=== PATIENT | male | born 1995 | race Caucasian/White ===

== ENCOUNTER 2018-09-13 11:37 | Emergency (ER) | payer BC ==
[2018-09-13] MEDS ORDERED: KETOROLAC 30 MG/1 ML SDV IVP ONE (13:17)
--- NOTE | 2018-09-13 13:21 | EDPHY ---
H & P Time Seen by Provider: 09/13/18 13:09 HPI/ROS: CHIEF COMPLAINT: Chest pain HISTORY OF PRESENT ILLNESS: Patient is a 23-year-old male who presents emergency department right-sided chest pain since Tuesday. Patient states he woke with pain under his right "stone." His pain has been consistent. It is not worse with movement. It is not positional. The patient states it is worse with exercise. Patient denies shortness of breath. He has had no fevers or chills. No cough. Pain or swelling. No recent travel. The patient went to work [employer]. There are laboratory studies and EKG. Provider there felt that he had T-wave abnormality and ST changes. The provider spoke with Dr. Campbell from Cardiology who recommended the patient come to the emergency department. Patient was not sent with his EKG although he did bring his lab work. REVIEW OF SYSTEMS: 10 systems were reveiwed and are negative with the exception of the elements mentioned in the history of present illness. Past Medical/Surgical History: Negative Past surgical history: Negative Family history: Negative for cardiac disease Smoking Status: Never smoked Physical Exam: 36.7, 111/53, 61, 16, 94% on room air GENERAL: Well-appearing, in no acute distress, alert. HEENT: Eyes normal to inspection, normal pharynx, no signs of dehydration. NECK: Normal, supple. RESPIRATORY: Clear to auscultation bilaterally, no rales, rhonchi or wheezing. CVS: Regular rate and rhythm, no rubs, murmurs, or gallops. Chest wall: Right anterior chest wall tenderness to palpation. This replicates his pain. No deformity. No redness. No rash. ABDOMEN: Soft, nontender, nondistended, no organomegaly. BACK: Normal to inspection, no CVA tenderness. SKIN: Normal color, no rash, warm, dry. No pallor. EXTREMITIES: No pedal edema, no calf tenderness, no Homans sign or cords, no joint swelling]. NEURO/PSYCH: Alert and oriented, normal mood and affect, normal motor sensory exam. Constitutional: Initial Vital Signs Temperature (C) 36.7 C 09/13/18 11:57 Heart Rate 61 09/13/18 11:57 Respiratory Rate 16 09/13/18 11:57 Blood Pressure 111/53 L 09/13/18 11:57 O2 Sat (%) 94 02/13/19 11:57 O2 Delivery Mode Room Air Allergies/Adverse Reactions: No Known Allergies Allergy (Unverified 09/13/18 11:56) Medical Decision Making - Diagnostics Imaging Results: Imaging Impressions Chest X-Ray 09/13/18 13:15 Impression: Normal chest x-ray. Cardiac CT 09/13/18 14:53 Impression: Normal coronary arterial system. Incidental myocardial bridge proximal LAD. All measurements of stenoses are based on NASCET criteria. Findings discussed with Makayla South M.D. at 17:50 hour, 09/13/2018. ED Course/Re-evaluation: In the emergency department discussed possible etiologies with the patient. I answered all his questions. [employer] was contacted to obtain the EKG. I reviewed the laboratory studies from [facility] earlier today. Patient's white count was 7.8. Hematocrit 47. Platelets 246. Sodium was mildly elevated 148. Potassium normal at 4.4. Creatinine was normal. D-dimer was less than 100 which is negative. Laboratory studies, repeat EKG, and chest x-ray were ordered. Patient was given Toradol 30 mg IV. EKG shows normal sinus rhythm, normal rate, normal axis, normal intervals. ST elevation in V2 through V5. Obtain EKG from [facility]. It is similar to the EKG obtained here. I discussed the case with Cardiology. They came to the emergency department to evaluate the patient. Patient's troponin was negative. Cardiology recommended echo and CT cardiac angiogram. CT cardiac angiogram: Please refer the dictated report by Dr. Mykel Valdez. The patient has myocardial bridge with no other abnormality. Cardiac echo: No acute disease noted I discussed the results with Dr. Meza. He recommended the patient not have straining is or athletic activity and follow-up with Cardiology. Patient was given warnings prior to leaving. He will return with worsening symptoms. Differential Diagnosis: My differential includes but is not limited to ACS, acute ND, pulmonary embolus , musculoskeletal strain, costochondritis, pericarditis, myocarditis, dissection , aneurysm - Data Points Laboratory Results: 09/13/18 13:34 POC Troponin I 0.00 ng/mL ng/mL (0.00-0.08) Medications Given: Metoprolol Tartrate (Lopressor) 25 mg PO EDNOW ONE Stop: 09/13/18 15:55 Last Admin: 09/13/18 15:57 Dose: Not Given Discontinued Medications Ketorolac Tromethamine (Toradol) 30 mg IVP EDNOW ONE Stop: 09/13/18 13:18 Last Admin: 09/13/18 13:38 Dose: 30 mg Point of Care Test Results: Chemistry 09/13/18 13:34 POC Troponin I 0.00 ng/mL ng/mL (0.00-0.08) Departure - Departure Disposition: Home, Routine, Self-Care Clinical Impression: Chest pain Qualifiers: Chest pain type: unspecified Qualified Code(s): R07.9 - Chest pain, unspecified Condition: Fair Instructions: Chest Pain (ED) Additional Instructions: You have a myocardial bridge noted on your CT cardiac angiogram. He will need further follow-up with cardiology. Until you follow up with Cardiology you should undergo no strenuous activity. Return to the emergency department with worsening chest pain or shortness of breath. Referrals: [facility] [Provider Group] - 2-3 days without fail
--- NOTE | 2018-09-13 15:44 | ECHO ---
[email or web address] [address] [address] Main: [phone] Fax: Transthoracic Echocardiogram Name: SERG SOLORIO MR#: [id number] Study Date: 09/13/2018 Study Time: 03:02 PM Date of : 1995 Age: 23 year(s) Height: ( ) Weight: ( ) BSA: Gender: Male Examination: Echo Indication: chest pain/abnl ekg Image Quality: Adequate Contrast: Requested by: Caroline Klein BP: / Heart Rate: Rhythm: Indication: chest pain/abnl ekg Procedure Staff Powderman: Ainsley Lazo [facility] Reading Physician: Nacho Kim MD Requesting Provider: Conclusions: Normal global systolic LV function. EF is 77 %. The mitral valve is normal in appearance and function. Trivial to mild tricuspid valve regurgitation. Right ventricular systolic pressure measures 20mmHg. Measurements: Chambers Valvular Assessment AV/MV Valvular Assessment TV/PV Normal Normal Normal Name Value Range Name Value Range Name Value Range Ao Audelia (MM): 2.8 cm (2.2 cm-3.7 AV Vmax: 1.36 m/s (1 m/s-1.7 TR Vmax: 1.95 mm/s ( - ) cm) m/s) TR PGmax: 15 mmHg ( - ) IVSd (2D): 0.9 cm (0.6 cm-1.1 AV maxP mmHg ( - ) syst. PAP: 20 mmHg ( - ) cm) LVOT Vmax: 1.19 m/s (0.7 m/s-1.1 PV Vmax: 1.21 m/s (0.6 m/s-0.9 LVDd (2D): 4.6 cm (4.2 cm-5.9 m/s) m/s) cm) TRICIA (Vmax): 2.7 cm2 ( - ) PV PGmax: 6 mmHg ( - ) LVDs (2D): 2.7 cm (2.1 cm-4 MV E Vmax: 0.76 m/s ( - ) cm) MV A Vmax: 0.51 m/s ( - ) LVPWd (2D): 1.0 cm (0.6 cm-1 MV E/A: 1.49 ( - ) cm) LVOTd 2.0 cm 2.0 cm mm LVEF (BP): 77 % (>=55 %) RVDd(2D): 3.7 cm (1.9 cm-3.8 cmmm) Continued Measurements: Chambers Valvular Assessment AV/MV Valvular Assessment TV/PV Name Value Name Value Name Value LADs: 2.9 cm MV DecTime: 155 m/s CVP (est.): 5 mmHg Patient: SERG SOLORIO Study Date: 09/13/2018 Page 1 of 2 03:02 PM LADs Lon.4 cm MV E' Septal: 0.13 m/s LA Area: 13.7 cm2 MV E/E' Septal: 5.90 LA Volume: 37 ml MV E/E' Lateral: 4.10 TAPSE: 2.3 cm RA Area: 12.9 cm2 Findings: Left Ventricle: Normal size left ventricle. No LV hypertrophy. Normal global systolic LV function. EF is 77 %. No regional wall motion abnormality. Normal diastolic LV function. Right Ventricle: Normal size right ventricle. Normal RV function. Left Atrium: The left atrium is normal in size. Right Atrium: The right atrium is normal in size. Mitral Valve: The mitral valve is normal in appearance and function. There is no significant mitral valve regurgitation. No mitral stenosis is present. Aortic Valve: The aortic valve is tri-leaflet. There is no aortic valve regurgitation. No aortic valve stenosis is present. Tricuspid Valve: The tricuspid valve is normal in appearance and function. Trivial to mild tricuspid valve regurgitation. Right ventricular systolic pressure measures 20mmHg. The pulmonary artery pressure is normal. Pulmonic Valve: The pulmonic valve is normal in appearance and function. Trivial pulmonic valve regurgitation. Aorta: The aorta is normal. Normal size aortic root measuring 2.8 cm. IVC: Normal size and course of the IVC. Pericardium: No pericardial effusion. (No Signature Object) Patient: SERG SOLORIO Study Date: 09/13/2018 Page 2 of 2 03:02 PM [id number]
[2018-09-13] MEDS ORDERED: METOPROLOL TARTRATE 25 MG TAB PO ONE (15:54)
[2018-09-13] MEDS ORDERED: IOHEXOL 350mgI/ML (OMNIPAQUE) 150 ML BTL IV ONE (15:58)
--- NOTE | 2018-09-13 16:31 | GCON ---
[f rep st] CONSULTATION CARDIAC CONSULTATION DATE OF CONSULTATION: 09/13/2018 CHIEF COMPLAINT: Chest pain. HISTORY OF PRESENT ILLNESS: The patient is a 23-year-old student who presented to [facility] today with chest pain. On Tuesday morning, he woke up with right-sided chest pressure that has bee n persistent since that time. It does get worse with deep breaths and exertion. He denies any palpi tation, shortness of breath, presyncope, or syncope. His EKG at [facility] was concerning; therefore , he was referred to the hospital. His troponin is negative and D-dimer at [facility] was negative. His EKG is abnormal showing abnormal ST-T wave changes in V1 through V3. Echocardiogram revealed pr eserved LV function without any wall motion or significant valvular abnormalities. PAST MEDICAL HISTORY: None. PAST SURGICAL HISTORY: None. FAMILY HISTORY: He denies any family history of coronary disease. SOCIAL HISTORY: He denies any drug or excessive caffeine or alcohol use. He is currently a student at studying finance. MEDICATIONS: None. ALLERGIES: No known drug allergies. REVIEW OF SYSTEMS: Twelve-point review of systems is negative, except for what is stated in the H an d P. PHYSICAL EXAM: GENERAL: Patient appears in no acute distress. VITAL SIGNS: Blood pressure 119/70, heart rate 50, oxygen saturation 99% on room air. Afebrile. NECK: No carotid bruits or JVD presen t. LUNGS: Clear to auscultation. No wheezes, rhonchi, or crackles auscultated. CARDIAC: Regular rate and rhythm, without any significant murmurs, rubs, or gallops appreciated. ABDOMEN: Soft, nont darius, nondistended. EXTREMITIES: Palpable pulses bilaterally without any evidence of edema. NEURO LOGIC: Nonfocal. PSYCHIATRIC: Mood and affect appropriate. SKIN: No obvious rashes or ecchymosis identified. LABORATORY DATA: Troponin negative x1. DIAGNOSTIC STUDIES: His EKG shows normal sinus rhythm with a heart rate of 60. He has abnormal ST-T wave changes in V1 through V3. An echocardiogram revealed preserved LV function without any significant valvular or wall motion abno rmalities. Chest x-ray showed no acute cardiopulmonary disease. ASSESSMENT: The patient is a 23-year-old male who presents with right-sided chest pressure and abnor mal EKG. PLAN: Patient woke up with right-sided chest pressure, which has been persistent since that time. I t is worse with deep breaths and exercise. He received 1 dose of Toradol, which did improve his disc omfort. His EKG is abnormal with ST-T wave changes in V1 through V3. He had an echocardiogram to ru le out hypertrophic obstructive cardiomyopathy. He is also going to have a coronary CT angiogram to assess for anomalous coronary artery. If the above testing is normal, he can be discharged home with nonsteroidal anti-inflammatory drug. /[id number]/[id number]
[2018-09-13 18:18] VITALS: BP 128/64
== END 2018-09-13 18:15 | disposition home or self-care (01) ==
DX: R07.9 Chest pain, unspecified (principal)
CPT/HCPCS: 84484-ER; 96374; J1885; Q9967